=== PATIENT | male | born 1955 | race Caucasian/White ===

== ENCOUNTER 2023-09-11 08:38 | Emergency (ER) | payer OTHER, SELFPAY ==
[2023-09-11 08:56] VITALS: BP 123/48; PULSE 64; RESP 20; TEMP 36.4; O2SAT 100; BMI 38.0
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
--- NOTE | 2023-09-11 09:54 | PC.NURSE ---
pt endorsed an allergy to ibuprofen which was then added to allergy list, toradol was held, pt was medicated with lido patch and tylenol per order and will be discharged
== END 2023-09-11 09:55 | disposition home or self-care (01) ==
PROVIDERS: Emergency Provider Emergency Medicine; PCP Internal Medicine
DX: M54.12 Radiculopathy, cervical region (principal); M54.2 Cervicalgia; M54.50 Low back pain, unspecified; R20.0 Anesthesia of skin; Z87.898 Personal history of other specified conditions
CPT/HCPCS: 99283; J1885